=== PATIENT | male | born 1960 | race Caucasian/White ===

== ENCOUNTER → 2016-12-24 | Outpatient (CLI) | payer BC | END | disposition home or self-care (01) | LOC: RAD.S 11:16 | DX: I10 Essential (primary) hypertension (principal); R60.9 Edema, unspecified; R79.9 Abnormal finding of blood chemistry, unspecified; R18.8 Other ascites ==

== ENCOUNTER 2017-01-11 08:25 | Day surgery (SDC) | payer BC ==
[~2017-01-11] VITALS: Ht 188 cm; Wt 101.6 kg
== END 2017-01-11 11:55 | disposition home or self-care (01) ==
LOC: RAD.S 08:25 → EDSTATUS 01-18 09:00
PROC: 0TB13ZX Excision of Left Kidney, Percutaneous Approach, Diagnostic (ICD-10-PCS; principal; 2017-01-11)
DX: R80.9 Proteinuria, unspecified (principal); Z79.899 Other long term (current) drug therapy